=== PATIENT | female | born 2000 | race Two or more races ===

== ENCOUNTER 2025-02-03 23:07 | Emergency (ER) | payer OTHER ==
[~2025-02-03] VITALS: Ht 162.6 cm; Wt 77.1 kg
[2025-02-04 02:49] VITALS: BP 124/78; TEMP 98; O2SAT 99
== END 2025-02-04 02:50 ==
LOC: ER 23:09
DX: R22.41 Localized swelling, mass and lump, right lower limb (principal)
CPT/HCPCS: 73590-TC; 93971-TC